=== PATIENT | female | born 1960 | race Two or more races ===

== ENCOUNTER 2019-05-10 14:46 | Outpatient (CLI) | payer OTHER ==
[~2019-05-10 14:46] MED LIST: VASOTEC10 MG
== END 2019-05-10 14:54 | disposition home or self-care (01) ==
LOC: RAD 14:46
DX: M25.511 Pain in right shoulder (principal)

== ENCOUNTER 2024-06-09 12:52 | Emergency (ER) | payer OTHER ==
[~2024-06-09] VITALS: Ht 162.6 cm; Wt 72.6 kg
[2024-06-09] MEDS ORDERED: TOPROL XL50 M1 (13:02)
== END 2024-06-09 16:23 | disposition home or self-care (01) ==
LOC: ER 12:53
DX: S20.212A Contusion of left front wall of thorax, initial encounter (principal); W01.0XXA Fall on same level from slipping, tripping and stumbling without subsequent striking against object, initial encounter; Y93.E5 Activity, floor mopping and cleaning; Y92.018 Other place in single-family (private) house as the place of occurrence of the external cause; I10 Essential (primary) hypertension; M32.8 Other forms of systemic lupus erythematosus; Z88.8 Allergy status to other drugs, medicaments and biological substances; E03.8 Other specified hypothyroidism; M19.90 Unspecified osteoarthritis, unspecified site